=== PATIENT | female | born 1995 ===

== ENCOUNTER 2017-11-16 15:23 | Emergency (ER) | payer BC, OTHER ==
[~2017-11-16] VITALS: Ht 180.3 cm; Wt 72.6 kg
--- NOTE | 2017-11-16 15:42 | NUR ---
Patient discharged to home in stable conditon. Written and verbal after care instructions given. Patient verbalizes understanding of instructions.
[2017-11-16 15:43] VITALS: BP 118/87
[2017-11-16] MEDS ORDERED: CLINDAMYCIN HCL 150 MG CAPSULE PO ONE (15:45)
[2017-11-16] MEDS ORDERED: SULFAMETH/TRIMETH 800/160 MG TABLET PO ONE (15:45)
== END 2017-11-16 15:43 | disposition home or self-care (01) ==
LOC: ER 15:29
DX: L03.113 Cellulitis of right upper limb (principal); F19.10 Other psychoactive substance abuse, uncomplicated
CPT/HCPCS: A4663